=== PATIENT | female | born 1940 | race Caucasian/White ===

== ENCOUNTER 2019-03-21 09:14 | Day surgery (SDC) | payer OTHER ==
[2019-03-20 16:47] VITALS: BMI 34.0
[2019-03-21 11:50] VITALS: TEMP 97.8
[2019-03-21 12:36] VITALS: BP 130/52; PULSE 55
== END 2019-03-21 12:36 | disposition home or self-care (01) ==
LOC: JASU-ENDO 09:14
PROVIDERS: ATTEND Internal Medicine Gastroenterology
PROC: 0DJD8ZZ Inspection of Lower Intestinal Tract, Via Natural or Artificial Opening Endoscopic (ICD-10-PCS; principal; 2019-03-21 10:15)
DX: Z12.11 Encounter for screening for malignant neoplasm of colon (principal); K57.30 Diverticulosis of large intestine without perforation or abscess without bleeding

== ENCOUNTER 2021-05-13 04:08 | Day surgery (SDC) | payer OTHER, MEDICARE ==
[2021-05-10 14:48] VITALS: BMI 32.3
[2021-05-13] MEDS ORDERED: LIDOCAINE HCL/PF 1% SDV 5ML VIAL ONE (07:10)
[2021-05-13] MEDS ORDERED: DEXAMETHASONE SOD PHOSPHATE 10 MG/1 ML VIAL ONE (07:10)
[2021-05-13] MEDS ORDERED: DEXAMETHASONE SOD PHOSPHATE 10 MG/1 ML VIAL IM ONE (10:19)
[2021-05-13] MEDS ORDERED: LIDOCAINE HCL 1% PRESERVATIVE FREE - 30ML VIAL IJ ONE (10:19)
[2021-05-13] MEDS ORDERED: IOHEXOL 180 MG/1 ML ML IJ ONE (10:19)
[2021-05-13 11:33] VITALS: BP 136/68; PULSE 62; TEMP 98.1
== END 2021-05-13 11:05 | disposition home or self-care (01) ==
LOC: JASU-SURG 04:08
PROVIDERS: ATTEND Pain Medicine Pain Medicine
PROC: 3E0R33Z Introduction of Anti-inflammatory into Spinal Canal, Percutaneous Approach (ICD-10-PCS; 2021-05-13)
PROC: B01BYZZ Fluoroscopy of Spinal Cord using Other Contrast (ICD-10-PCS; 2021-05-13)
PROC: 3E0R3BZ Introduction of Anesthetic Agent into Spinal Canal, Percutaneous Approach (ICD-10-PCS; principal; 2021-05-13 09:00)
DX: M54.16 Radiculopathy, lumbar region (principal); M48.061 Spinal stenosis, lumbar region without neurogenic claudication; I10 Essential (primary) hypertension
CPT/HCPCS: 76000-TC-FY; J1100

== ENCOUNTER 2021-06-24 04:18 | Day surgery (SDC) | payer OTHER, MEDICARE ==
[2021-06-23 10:54] VITALS: BMI 32.1
[2021-06-24] MEDS ORDERED: DEXAMETHASONE SOD PHOSPHATE 10 MG/1 ML VIAL ONE (07:11)
[2021-06-24] MEDS ORDERED: BUPIVACAINE HCL/PF 0.75% 10 ML VIAL ONE (07:11)
[2021-06-24] MEDS ORDERED: LIDOCAINE HCL/PF 1% SDV 5ML VIAL ONE (07:15)
[2021-06-24 07:40] VITALS: TEMP 98.9
[2021-06-24] MEDS ORDERED: LIDOCAINE HCL 1% PRESERVATIVE FREE - 30ML VIAL IJ ONE (10:06)
[2021-06-24] MEDS ORDERED: DEXAMETHASONE SOD PHOSPHATE 10 MG/1 ML VIAL IVPUSH ONE (10:07)
[2021-06-24] MEDS ORDERED: IOHEXOL 180 MG/1 ML ML IJ ONE (10:07)
[2021-06-24 10:32] VITALS: BP 130/50
[2021-06-24 12:35] VITALS: PULSE 60
== END 2021-06-24 12:38 | disposition home or self-care (01) ==
LOC: JASU-SURG 04:18
PROVIDERS: ATTEND Pain Medicine Pain Medicine
PROC: 3E0R33Z Introduction of Anti-inflammatory into Spinal Canal, Percutaneous Approach (ICD-10-PCS; 2021-06-24)
PROC: 3E0R3BZ Introduction of Anesthetic Agent into Spinal Canal, Percutaneous Approach (ICD-10-PCS; principal; 2021-06-24 09:00)
DX: M54.16 Radiculopathy, lumbar region (principal)
CPT/HCPCS: 76000-TC-FY; J1100

== ENCOUNTER 2021-07-25 10:35 | Emergency (ER) | payer OTHER, MEDICARE ==
[2021-07-25 11:02] VITALS: BP 121/75; PULSE 64; TEMP 98.2; BMI 32.3
[2021-07-25] MEDS ORDERED: SODIUM PHOSPHATE/NA BIPHOS 133 ML ENEMA PR ONE (11:39)
[2021-07-25 14:52] LABS: BASO % 0.7 % (0-2.0); EOS % 2.3 % (0-4.5); HEMATOCRIT 39.9 % (32.4-45.2); HEMOGLOBIN 13.8 GM/dL (10.7-15.3); LYMPH % 15.8 % (8-40); MCH 31.3 pg (25.7-33.7); MCHC 34.7 g/dl (32.0-36.0); MEAN CELL VOLUME 90.3 fl (80-96); MEAN PLT VOLUME 8.2 fl (7.5-11.1); MONO % 7.6 % (3.8-10.2); NEUT % 73.6 % (42.8-82.8); PLATELET COUNT 220 10^3/uL (134-434); RBC 4.41 M/mm3 (3.60-5.2); RDW 13.9 % (11.6-15.6); WHITE BLOOD COUNT 7.8 K/mm3 (4.0-10.0)
[2021-07-25 15:13] LABS: CALCIUM 9.3 mg/dL (8.5-10.1)
[2021-07-25 15:14] LABS: BLOOD UREA NITROGEN 16.7 mg/dL (7-18)
[2021-07-25 15:17] LABS: CREATININE 1.1 mg/dL (0.55-1.3)
[2021-07-25 15:18] LABS: BILIRUBIN,TOTAL 0.8 mg/dL (0.2-1); TOT PROT 6.9 g/dl (6.4-8.2)
[2021-07-25] MEDS ORDERED: ACETAMINOPHEN 1000 MG/100 ML VIAL IVPB ONE (18:06)
[2021-07-25] MEDS ORDERED: ACETAMINOPHEN INJECTION 100 ML IVPB ONE (18:07)
[2021-07-25] MEDS ORDERED: NAPROXEN 250 MG TABLET PO ONE (18:33)
[2021-07-25] MEDS ORDERED: NAPROXEN 500 MG TABLET ONE (18:35)
[2021-07-25] MEDS ORDERED: LACTULOSE 20 GM/30 ML UDC (FOR ORAL USE ONLY) ONE (18:37)
[2021-07-25] MEDS ORDERED: LACTULOSE 20 GM/30 ML UDC (FOR ORAL USE ONLY) PO ONE (18:41)
== END 2021-07-25 18:55 | disposition home or self-care (01) ==
LOC: JERFT 10:35
PROC: 3E0333Z Introduction of Anti-inflammatory into Peripheral Vein, Percutaneous Approach (ICD-10-PCS; principal; 2021-07-25)
DX: K59.00 Constipation, unspecified (principal)
CPT/HCPCS: 36415; 74018-TC-FY; 74177-TC; 80053; 83690; 85025; 96374; 99285-25; C9803; J0131; Q9967; U0003; U0005

== ENCOUNTER 2021-11-29 04:48 | Day surgery (SDC) | payer OTHER, MEDICARE ==
[2021-11-25 16:37] VITALS: BMI 32.3
[2021-11-29] MEDS ORDERED: BUPIVACAINE HCL/PF 0.5% (5MG/ML) 10 ML VIAL ONE (07:20)
[2021-11-29] MEDS ORDERED: BUPIVACAINE HCL/PF 0.75% 10 ML VIAL ONE (07:21)
[2021-11-29] MEDS ORDERED: LIDOCAINE HCL/PF 1% SDV 5ML VIAL ONE ×2 (07:21→11:39)
[2021-11-29] MEDS ORDERED: DEXAMETHASONE SOD PHOSPHATE 10 MG/1 ML VIAL ONE (07:21)
[2021-11-29] MEDS ORDERED: LIDOCAINE HCL 2% (20ML MULTI-DOSE VIAL) ONE (11:39)
[2021-11-29] MEDS ORDERED: LIDOCAINE HCL/PF 2% SDV 5ML VIAL ONE ×2 (11:42→11:47)
[2021-11-29] MEDS ORDERED: DEXAMETHASONE SOD PHOSPHATE 10 MG/1 ML VIAL IM ONE ×2 (11:43→12:05)
[2021-11-29] MEDS ORDERED: LIDOCAINE HCL/PF 2% SDV 5ML VIAL INF ONE ×2 (11:43→12:05)
[2021-11-29] MEDS ORDERED: LIDOCAINE 1% P/F 10 MG/ML VIAL INF ONE ×2 (11:43→12:04)
[2021-11-29] MEDS ORDERED: ceFAZolin SODIUM 1 GM VIAL IVPB ONE (12:00)
[2021-11-29] MEDS ORDERED: MIDAZOLAM HCL 2 MG/2 ML SINGLE DOSE VIAL ONE ×2 (12:01)
[2021-11-29] MEDS ORDERED: PROPOFOL 20 ML ONE ×2 (12:11)
[2021-11-29] MEDS ORDERED: ceFAZolin SODIUM 1 GM VIAL ONE (12:30)
[2021-11-29] MEDS ORDERED: KETOROLAC TROMETHAMINE 30 MG/1 ML VIAL ONE (13:24)
[2021-11-29] MEDS ORDERED: ACETAMINOPHEN INJECTION 100 ML IVPB ONE (13:24)
[2021-11-29 16:03] VITALS: BP 142/50; PULSE 64; TEMP 97.8
== END 2021-11-29 15:45 | disposition home or self-care (01) ==
LOC: JASU-SURG 04:48
PROVIDERS: ATTEND Pain Medicine Pain Medicine
PROC: BR19YZZ Fluoroscopy of Lumbar Spine using Other Contrast (ICD-10-PCS; 2021-11-29)
PROC: 01NB3ZZ Release Lumbar Nerve, Percutaneous Approach (ICD-10-PCS; principal; 2021-11-29 11:00)
DX: M48.062 Spinal stenosis, lumbar region with neurogenic claudication (principal)
CPT/HCPCS: 0275T; C1889; 76000-TC-FY; 88304-TC; 94760; J1100

== ENCOUNTER 2021-12-17 16:53 | Emergency (ER) | payer OTHER, MEDICARE ==
[2021-12-17 17:16] VITALS: BP 161/76; PULSE 70; TEMP 98.5; BMI 31.3
== END 2021-12-17 19:26 | disposition left against medical advice (07) ==
LOC: JER 16:53
DX: M54.50 Low back pain, unspecified (principal)
CPT/HCPCS: 99281-25

== ENCOUNTER 2021-12-30 04:26 | Day surgery (SDC) | payer OTHER, MEDICARE ==
[2021-12-21 13:40] VITALS: BMI 32.3
[2021-12-30] MEDS ORDERED: LIDOCAINE HCL 1% PRESERVATIVE FREE - 30ML VIAL IJ ONE (10:12)
[2021-12-30] MEDS ORDERED: BUPIVACAINE HCL/PF 0.75% 10 ML VIAL PNB ONE (10:12)
[2021-12-30] MEDS ORDERED: IOHEXOL 180 MG/1 ML ML IJ ONE (10:12)
[2021-12-30] MEDS ORDERED: ACETAMINOPHEN 500 MG TABLET (FP) PO ONE (10:51)
[2021-12-30 13:10] VITALS: TEMP 98.9
[2021-12-30 13:13] VITALS: BP 158/82; PULSE 75
== END 2021-12-30 12:50 | disposition home or self-care (01) ==
LOC: JASU-SURG 04:26
PROVIDERS: ATTEND Pain Medicine Pain Medicine
PROC: 3E0T33Z Introduction of Anti-inflammatory into Peripheral Nerves and Plexi, Percutaneous Approach (ICD-10-PCS; 2021-12-30)
PROC: 3E0T3BZ Introduction of Anesthetic Agent into Peripheral Nerves and Plexi, Percutaneous Approach (ICD-10-PCS; principal; 2021-12-30 11:00)
DX: M47.816 Spondylosis without myelopathy or radiculopathy, lumbar region (principal)
CPT/HCPCS: 76000-TC-FY

== ENCOUNTER 2022-01-27 04:13 | Day surgery (SDC) | payer OTHER, MEDICARE ==
[2022-01-25 16:17] VITALS: BMI 31.3
[~2022-01-27 04:13] MED LIST: BUPIVACAINE HCL/PF 0.75% 10 ML VIAL NR ONE; LIDOCAINE HCL 1% PRESERVATIVE FREE - 30ML VIAL IJ ONE
[2022-01-27] MEDS ORDERED: LIDOCAINE HCL/PF 1% SDV 5ML VIAL ONE (07:37)
[2022-01-27] MEDS ORDERED: BUPIVACAINE HCL/PF 0.75% 10 ML VIAL ONE (07:37)
[2022-01-27] MEDS ORDERED: LIDOCAINE HCL 1% PRESERVATIVE FREE - 30ML VIAL IJ ONE (10:01)
[2022-01-27] MEDS ORDERED: BUPIVACAINE HCL/PF 0.75% 10 ML VIAL NR ONE (10:04)
[2022-01-27 11:07] VITALS: TEMP 98.8
[2022-01-27 11:09] VITALS: BP 160/70; PULSE 68
== END 2022-01-27 11:35 | disposition home or self-care (01) ==
LOC: JASU-SURG 04:13
PROVIDERS: ATTEND Pain Medicine Pain Medicine
PROC: 3E0T33Z Introduction of Anti-inflammatory into Peripheral Nerves and Plexi, Percutaneous Approach (ICD-10-PCS; 2022-01-27)
PROC: 3E0T3BZ Introduction of Anesthetic Agent into Peripheral Nerves and Plexi, Percutaneous Approach (ICD-10-PCS; principal; 2022-01-27 11:00)
DX: M47.816 Spondylosis without myelopathy or radiculopathy, lumbar region (principal)
CPT/HCPCS: 76000-TC-FY

== ENCOUNTER 2022-02-21 04:36 | Day surgery (SDC) | payer OTHER, MEDICARE ==
[2022-02-17 16:45] VITALS: BMI 32.3
[2022-02-21] MEDS ORDERED: BUPIVACAINE HCL/PF 0.75% 10 ML VIAL NR ONE ×3 (10:30→10:57)
[2022-02-21] MEDS ORDERED: LIDOCAINE HCL/PF 2% SDV 5ML VIAL INF ONE ×2 (10:31→10:45)
[2022-02-21] MEDS ORDERED: LIDOCAINE HCL 1% PRESERVATIVE FREE - 30ML VIAL IJ ONE (10:31)
[2022-02-21] MEDS ORDERED: ACETAMINOPHEN 325 MG TABLET (FP) PO ONE (11:10)
[2022-02-21 11:49] VITALS: BP 152/51; PULSE 56; TEMP 97.3
[2022-02-21] MEDS ORDERED: ACETAMINOPHEN 325 MG TABLET (FP) ONE (13:26)
== END 2022-02-21 14:09 | disposition home or self-care (01) ==
LOC: JASU-SURG 04:36
PROVIDERS: ATTEND Pain Medicine Pain Medicine
PROC: 3E0T3TZ Introduction of Destructive Agent into Peripheral Nerves and Plexi, Percutaneous Approach (ICD-10-PCS; principal; 2022-02-21 10:15)
PROC: BR16YZZ Fluoroscopy of Lumbar Facet Joint(s) using Other Contrast (ICD-10-PCS; 2022-02-21 10:15)
DX: M47.816 Spondylosis without myelopathy or radiculopathy, lumbar region (principal); I10 Essential (primary) hypertension
CPT/HCPCS: 76000-TC-FY

== ENCOUNTER 2022-03-15 13:49 | Emergency (ER) | payer OTHER, MEDICARE ==
[2022-03-15 14:18] VITALS: BP 133/58; PULSE 57; TEMP 98; BMI 32.3
[2022-03-15] MEDS ORDERED: LIDOCAINE 5% TOPICAL PATCH TP ONE (14:25)
[2022-03-15] MEDS ORDERED: LIDOCAINE 5% TOPICAL PATCH ONE (14:40)
[2022-03-15] MEDS ORDERED: ACETAMINOPHEN 325 MG TABLET (FP) PO ONE (15:08)
[2022-03-15] MEDS ORDERED: ACETAMINOPHEN 325 MG TABLET (FP) ONE (15:34)
[2022-03-15] MEDS ORDERED: LIDOCAINE PATCH REMOVAL MC SCH (22:00)
== END 2022-03-15 17:18 | disposition home or self-care (01) ==
LOC: JER 13:49
DX: M79.605 Pain in left leg (principal)
CPT/HCPCS: 99283-25

== ENCOUNTER 2022-03-16 07:36 | Observation (INO) | payer OTHER, MEDICARE ==
[2022-03-16] MEDS ORDERED: IBUPROFEN 400 MG TABLET (FP) PO ONE ×2 (08:34→08:55)
[2022-03-16 10:13] LABS: BASO % 0.6 % (0-2.0); EOS % 2.3 % (0-4.5); HEMOGLOBIN 12.4 GM/dL (10.7-15.3); LYMPH % 18.4 % (8-40); MCH 29.7 pg (25.7-33.7); MCHC 33.5 g/dl (32.0-36.0); MEAN CELL VOLUME 88.8 fl (80-96); MEAN PLT VOLUME 8.1 fl (7.5-11.1); MONO % 8.7 % (3.8-10.2); PLATELET COUNT 225 10^3/uL (134-434); RBC 4.17 M/mm3 (3.60-5.2); RDW 14.3 % (11.6-15.6); WHITE BLOOD COUNT 7.4 K/mm3 (4.0-10.0)
[2022-03-16 10:24] LABS: ALBUMIN 3.6 g/dl (3.4-5.0); CALCIUM 8.9 mg/dL (8.5-10.1)
[2022-03-16 10:28] LABS: CREATININE 1.1 mg/dL (0.55-1.3)
[2022-03-16 10:29] LABS: BILIRUBIN,TOTAL 0.8 mg/dL (0.2-1); TOT PROT 5.8 g/dl (6.4-8.2)
[2022-03-16] MEDS ORDERED: LACTULOSE 20 GM/30 ML UDC (FOR ORAL USE ONLY) PO PRN (12:13)
[2022-03-16] MEDS ORDERED: diazePAM 5 MG TABLET PO PRN (12:13)
[2022-03-16 14:33] VITALS: BMI 27.9
[2022-03-16] MEDS: GABAPENTIN 300 MG CAPSULE PO SCH ×2 (15:17→21:54)
[2022-03-16] MEDS ORDERED: IBUPROFEN 400 MG TABLET (FP) PO PRN (15:19)
[2022-03-16] MEDS: ESCITALOPRAM OXALATE 10 MG TABLET PO SCH (15:40)
[2022-03-16] MEDS: ACETAMINOPHEN 325 MG TABLET (FP) PO PRN ×2 (16:30→21:54)
[2022-03-16] MEDS: HEPARIN NA (PORCINE) 5,000 UNITS/ML 1ML VIAL SQ SCH (21:54)
[2022-03-16] MEDS ORDERED: ATORVASTATIN CA 10 MG TABLET (FP) PO SCH (22:00)
[2022-03-16] MEDS ORDERED: BETAHISTINE HCL PO SCH (22:00)
[2022-03-17] MEDS ORDERED: LIDOCAINE 5% TOPICAL PATCH TP ONE (01:38)
[2022-03-17] MEDS: GABAPENTIN 300 MG CAPSULE PO SCH ×2 (06:21→14:20)
[2022-03-17] MEDS ORDERED: CHOLECALCIFEROL (VIT D3) 1,000 UNIT (25 MCG) TABLET PO SCH (10:00)
[2022-03-17] MEDS ORDERED: ASCORBIC ACID 500 MG TABLET (FP) PO SCH (10:00)
[2022-03-17] MEDS ORDERED: [UNRECOGNIZED DRUG - OTHER] PO SCH (10:00)
[2022-03-17] MEDS ORDERED: ASPIRIN COATED 81 MG TABLET.EC PO SCH (10:00)
[2022-03-17] MEDS ORDERED: CYANOCOBALAMIN 1,000 MCG TABLET (FP) PO SCH (10:00)
[2022-03-17] MEDS: HEPARIN NA (PORCINE) 5,000 UNITS/ML 1ML VIAL SQ SCH (10:15)
[2022-03-17] MEDS: ESCITALOPRAM OXALATE 10 MG TABLET PO SCH (10:15)
[2022-03-17] MEDS ORDERED: amLODIPine BESYLATE 5 MG TABLET (FP) PO SCH (11:15)
[2022-03-17 14:39] VITALS: RESP 20
[2022-03-17 14:41] VITALS: BP 133/61; PULSE 62; TEMP 98.1
[2022-03-17] MEDS ORDERED: LIDOCAINE PATCH REMOVAL MC SCH (22:00)
== END 2022-03-17 19:35 | disposition home or self-care (01) ==
LOC: JER 07:36 → JERBED 10:19 → J6S 13:33
PROVIDERS: ADMIT Internal Medicine; ATTEND Internal Medicine
PROC: 3E023GC Introduction of Other Therapeutic Substance into Muscle, Percutaneous Approach (ICD-10-PCS; principal; 2022-03-16)
DX: M48.00 Spinal stenosis, site unspecified (principal); F32.A Depression, unspecified; K59.00 Constipation, unspecified; M54.9 Dorsalgia, unspecified; K29.70 Gastritis, unspecified, without bleeding; I10 Essential (primary) hypertension; E78.5 Hyperlipidemia, unspecified; Z87.440 Personal history of urinary (tract) infections; Z88.0 Allergy status to penicillin
CPT/HCPCS: 36415; 72100-TC-FY; 80053; 85025; 93005; 93010; 96372; 97116-GP; 97162-GP; 99285-25; C9803-CS; G0378; J1644; U0003; U0005

== ENCOUNTER 2022-03-21 04:41 | Day surgery (SDC) | payer OTHER, MEDICARE ==
[2022-03-21] MEDS ORDERED: BUPIVACAINE HCL/PF 0.75% 10 ML VIAL ONE (07:20)
[2022-03-21] MEDS ORDERED: LIDOCAINE HCL/PF 1% SDV 5ML VIAL ONE (07:20)
[2022-03-21] MEDS ORDERED: DEXAMETHASONE SOD PHOSPHATE 10 MG/1 ML VIAL ONE (07:20)
[2022-03-21] MEDS ORDERED: LIDOCAINE HCL/PF 2% SDV 5ML VIAL ONE (07:30)
[2022-03-21] MEDS ORDERED: LIDOCAINE HCL/PF 2% SDV 5ML VIAL SQ ONE (09:15)
[2022-03-21] MEDS ORDERED: DEXAMETHASONE SOD PHOSPHATE 10 MG/1 ML VIAL IVPUSH ONE (09:15)
[2022-03-21] MEDS ORDERED: BUPIVACAINE HCL/PF 0.75% 10 ML VIAL NR ONE (09:15)
[2022-03-21] MEDS ORDERED: LIDOCAINE HCL 1% PRESERVATIVE FREE - 30ML VIAL IJ ONE (09:15)
[2022-03-21] MEDS ORDERED: ACETAMINOPHEN 325 MG TABLET (FP) ONE (10:35)
[2022-03-21 11:25] VITALS: RESP 20; TEMP 98.8
[2022-03-21 15:00] VITALS: BP 125/70; PULSE 62
== END 2022-03-21 14:45 | disposition home or self-care (01) ==
LOC: JASU-SURG 04:41
PROVIDERS: ATTEND Pain Medicine Pain Medicine
PROC: 3E0T3TZ Introduction of Destructive Agent into Peripheral Nerves and Plexi, Percutaneous Approach (ICD-10-PCS; principal; 2022-03-21 08:45)
DX: M47.816 Spondylosis without myelopathy or radiculopathy, lumbar region (principal)
CPT/HCPCS: 76000-TC-FY; J1100

== ENCOUNTER 2022-03-29 06:56 | Emergency (ER) | payer OTHER, MEDICARE ==
[2022-03-29] MEDS ORDERED: KETOROLAC TROMETHAMINE 30 MG/1 ML VIAL IM ONE (07:49)
[2022-03-29] MEDS ORDERED: ACETAMINOPHEN 325 MG TABLET (FP) PO ONE (07:49)
[2022-03-29] MEDS ORDERED: KETOROLAC TROMETHAMINE 30 MG/1 ML VIAL ONE (07:53)
[2022-03-29] MEDS ORDERED: ACETAMINOPHEN 500 MG TABLET (FP) ONE (07:55)
[2022-03-29 08:44] VITALS: RESP 16; TEMP 97.5; BMI 31.4
[2022-03-29] MEDS ORDERED: GABAPENTIN 300 MG CAPSULE PO ONE (11:18)
[2022-03-29] MEDS ORDERED: GABAPENTIN 300 MG CAPSULE ONE (11:19)
[2022-03-29 11:23] VITALS: PULSE 68
[2022-03-29 11:26] VITALS: BP 149/64
== END 2022-03-29 11:56 | disposition home or self-care (01) ==
LOC: JER 06:56
PROC: 3E023GC Introduction of Other Therapeutic Substance into Muscle, Percutaneous Approach (ICD-10-PCS; principal; 2022-03-29)
DX: M48.00 Spinal stenosis, site unspecified (principal); M79.605 Pain in left leg
CPT/HCPCS: 93971-TC; 99284-25

== ENCOUNTER 2022-04-01 04:12 | Emergency (ER) | payer OTHER, MEDICARE ==
[2022-04-01 04:27] VITALS: BMI 31.4
[2022-04-01 04:32] VITALS: TEMP 97.8
[2022-04-01] MEDS ORDERED: LACTULOSE 20 GM/30 ML UDC (FOR ORAL USE ONLY) PO ONE (04:56)
[2022-04-01] MEDS ORDERED: LACTULOSE 20 GM/30 ML UDC (FOR ORAL USE ONLY) ONE (05:02)
[2022-04-01 07:57] VITALS: BP 155/71; PULSE 70; RESP 16
== END 2022-04-01 07:58 | disposition home or self-care (01) ==
LOC: JER 04:12
DX: K62.89 Other specified diseases of anus and rectum (principal); K59.00 Constipation, unspecified
CPT/HCPCS: 99283-25

== ENCOUNTER 2022-04-03 08:36 | Emergency (ER) | payer OTHER, MEDICARE ==
[2022-04-03 08:56] VITALS: BP 135/50; PULSE 60; RESP 18; TEMP 97.4; BMI 30.7
[2022-04-03] MEDS ORDERED: METHOCARBAMOL 500 MG TABLET PO ONE (09:20)
[2022-04-03] MEDS ORDERED: LIDOCAINE 5% TOPICAL PATCH TP ONE (09:20)
[2022-04-03] MEDS ORDERED: ACETAMINOPHEN 500 MG TABLET (FP) PO ONE (09:20)
[2022-04-03] MEDS ORDERED: METHOCARBAMOL 500 MG TABLET ONE (09:46)
[2022-04-03] MEDS ORDERED: ACETAMINOPHEN 325 MG TABLET (FP) ONE (09:47)
[2022-04-03] MEDS ORDERED: LIDOCAINE 5% TOPICAL PATCH ONE (09:47)
[2022-04-03] MEDS ORDERED: LIDOCAINE PATCH REMOVAL MC SCH (22:00)
== END 2022-04-03 14:29 | disposition home or self-care (01) ==
LOC: JER 08:36
DX: M54.89 Other dorsalgia (principal)
CPT/HCPCS: 72100-TC-FY; 93005; 93010; 99284-25

== ENCOUNTER 2022-04-11 07:16 | Inpatient (IN) | payer OTHER, MEDICARE ==
[2022-04-11 07:53] LABS: BASO % 0.9 % (0-2.0); EOS % 2.5 % (0-4.5); HEMATOCRIT 34.9 % (32.4-45.2); HEMOGLOBIN 12.2 GM/dL (10.7-15.3); MCH 30.9 pg (25.7-33.7); MCHC 34.8 g/dl (32.0-36.0); MEAN CELL VOLUME 88.7 fl (80-96); MEAN PLT VOLUME 7.8 fl (7.5-11.1); MONO % 7.9 % (3.8-10.2); NEUT % 74.7 % (42.8-82.8); PLATELET COUNT 221 10^3/uL (134-434); RBC 3.94 M/mm3 (3.60-5.2); RDW 14.3 % (11.6-15.6); WHITE BLOOD COUNT 7.7 K/mm3 (4.0-10.0)
[2022-04-11 08:00] VITALS: BMI 28.2
[2022-04-11 08:20] LABS: PROTHROMBIN TIME (PATIENT) 11.5 SEC (9.7-13.0)
[2022-04-11 08:23] LABS: ACTIVATED PTT 29.2 SECONDS (25.2-36.5); ALBUMIN 3.9 g/dl (3.4-5.0); BLOOD UREA NITROGEN 15.6 mg/dL (7-18); MAGNESIUM 1.7 mg/dL (1.8-2.4)
[2022-04-11 08:26] LABS: CREATININE 1.2 mg/dL (0.55-1.3)
[2022-04-11 08:28] LABS: TOT PROT 6.3 g/dl (6.4-8.2)
[2022-04-11 08:30] LABS: BILIRUBIN,TOTAL 0.7 mg/dL (0.2-1)
[2022-04-11 11:41] LABS: EPI CELLS 7 /uL (0-25.1); HYALINE CASTS 0 /uL (0-3.1); URINE APPEARANCE CLEAR; URINE BACTERIA 1685 /uL (0-1359); URINE BILIRUBIN NEGATIVE (NEGATIVE); URINE COLOR YELLOW; URINE GLUCOSE (UA) NEGATIVE (NEGATIVE); URINE KETONE NEGATIVE (NEGATIVE); URINE LEUK ESTERASE 3+ (NEGATIVE); URINE NITRITE NEGATIVE (NEGATIVE); URINE PROTEIN NEGATIVE (NEGATIVE); URINE UROBILINOGEN 0.2 mg/dL (0.2-1.0); URINE WBC 234 /uL (0-25.8)
[2022-04-11 12:10] LABS: URINE RBC 60.4 /uL (0-23.9)
[2022-04-11] MEDS ORDERED: ACETAMINOPHEN 325 MG TABLET (FP) PO ONE (12:15)
[2022-04-11] MEDS ORDERED: ACETAMINOPHEN 325 MG TABLET (FP) ONE (12:32)
[2022-04-11] MEDS ORDERED: CEFTRIAXONE 1 GM/50 ML BAG ONE (12:32)
[2022-04-11] MEDS ORDERED: MAGNESIUM OXIDE 400 MG TABLET (FP) PO ONE (16:00)
[2022-04-11] MEDS ORDERED: MAGNESIUM OXIDE 400 MG TABLET (FP) ONE (16:21)
[2022-04-11] MEDS: IBUPROFEN 400 MG TABLET (FP) PO PRN (16:36)
[2022-04-11] MEDS: MECLIZINE HCL 12.5 MG TABLET PO SCH ×2 (17:42→21:59)
[2022-04-11] MEDS ORDERED: MECLIZINE HCL 12.5 MG TABLET ONE ×2 (17:43→21:57)
[2022-04-11] MEDS ORDERED: POLYETHYLENE GLYCOL (HEALTHYLAX) 3350 17 GM PACKET ONE (21:17)
[2022-04-11] MEDS ORDERED: SENNOSIDES 8.6MG TABLET (FP) PO ONE (21:17)
[2022-04-11] MEDS ORDERED: ATORVASTATIN CA 10 MG TABLET (FP) ONE (21:18)
[2022-04-11] MEDS ORDERED: DOCUSATE SODIUM 100 MG CAPSULE (FP) PO ONE (21:18)
[2022-04-11] MEDS: SENNOSIDES 8.6MG TABLET (FP) PO SCH (21:26)
[2022-04-11] MEDS: POLYETHYLENE GLYCOL (HEALTHYLAX) 3350 17 GM PACKET PO SCH (21:26)
[2022-04-11] MEDS: ATORVASTATIN CA 10 MG TABLET (FP) PO SCH (21:26)
[2022-04-11] MEDS: DOCUSATE SODIUM 100 MG CAPSULE (FP) PO SCH (21:27)
[2022-04-12] MEDS: IBUPROFEN 400 MG TABLET (FP) PO PRN ×2 (02:49→18:50)
[2022-04-12] MEDS: MECLIZINE HCL 12.5 MG TABLET PO SCH ×3 (06:21→21:05)
[2022-04-12] MEDS: DOCUSATE SODIUM 100 MG CAPSULE (FP) PO SCH ×3 (06:21→21:05)
[2022-04-12 06:59] LABS: BASO % 0.6 % (0-2.0); EOS % 1.6 % (0-4.5); HEMATOCRIT 35.5 % (32.4-45.2); HEMOGLOBIN 12.2 GM/dL (10.7-15.3); LYMPH % 16.6 % (8-40); MCH 30.6 pg (25.7-33.7); MCHC 34.3 g/dl (32.0-36.0); MEAN CELL VOLUME 89.3 fl (80-96); MEAN PLT VOLUME 8.3 fl (7.5-11.1); MONO % 8.9 % (3.8-10.2); NEUT % 72.3 % (42.8-82.8); PLATELET COUNT 227 10^3/uL (134-434); RBC 3.98 M/mm3 (3.60-5.2); RDW 14.3 % (11.6-15.6); WHITE BLOOD COUNT 6.7 K/mm3 (4.0-10.0)
[2022-04-12 07:29] LABS: ALBUMIN 3.5 g/dl (3.4-5.0); MAGNESIUM 1.8 mg/dL (1.8-2.4)
[2022-04-12 07:31] LABS: PHOSPHOROUS 3.1 mg/dL (2.5-4.9)
[2022-04-12 07:33] LABS: BILIRUBIN,TOTAL 0.9 mg/dL (0.2-1); TOT PROT 5.8 g/dl (6.4-8.2)
[2022-04-12] MEDS: PANTOPRAZOLE 20 MG TABLET PO SCH (09:59)
[2022-04-12] MEDS: ESCITALOPRAM OXALATE 10 MG TABLET PO SCH (09:59)
[2022-04-12] MEDS: ENOXAPARIN NA (PORCINE) 40 MG/0.4 ML DISP.SYRIN SQ SCH (09:59)
[2022-04-12] MEDS ORDERED: PATIENT'S OWN MEDICATION (NON-FORMULARY) (Omeprazole 20 MG Capsule.Dr) PO SCH (10:00)
[2022-04-12] MEDS: POLYETHYLENE GLYCOL (HEALTHYLAX) 3350 17 GM PACKET PO SCH ×2 (10:01→21:05)
[2022-04-12] MEDS: CEFTRIAXONE 1 GM in DEXTROSE 5%-WATER - 50 ML IVPB SCH (11:17)
[2022-04-12] MEDS ORDERED: GABAPENTIN 100 MG CAPSULE PO SCH (11:45)
[2022-04-12] MEDS: CYANOCOBALAMIN 1,000 MCG TABLET (FP) PO SCH (12:24)
[2022-04-12] MEDS: GABAPENTIN 300 MG CAPSULE PO SCH ×3 (12:42→21:05)
[2022-04-12] MEDS: ATORVASTATIN CA 10 MG TABLET (FP) PO SCH (21:05)
[2022-04-12] MEDS: SENNOSIDES 8.6MG TABLET (FP) PO SCH (21:05)
[2022-04-13] MEDS: MECLIZINE HCL 12.5 MG TABLET PO SCH ×3 (06:15→21:24)
[2022-04-13] MEDS: DOCUSATE SODIUM 100 MG CAPSULE (FP) PO SCH ×3 (06:15→21:24)
[2022-04-13] MEDS: GABAPENTIN 300 MG CAPSULE PO SCH ×3 (06:15→21:28)
[2022-04-13] MEDS: CYANOCOBALAMIN 1,000 MCG TABLET (FP) PO SCH (10:02)
[2022-04-13] MEDS: PANTOPRAZOLE 20 MG TABLET PO SCH (10:02)
[2022-04-13] MEDS: POLYETHYLENE GLYCOL (HEALTHYLAX) 3350 17 GM PACKET PO SCH ×2 (10:02→21:29)
[2022-04-13] MEDS: ENOXAPARIN NA (PORCINE) 40 MG/0.4 ML DISP.SYRIN SQ SCH (10:03)
[2022-04-13] MEDS: CEFTRIAXONE 1 GM in DEXTROSE 5%-WATER - 50 ML IVPB SCH (10:03)
[2022-04-13] MEDS: ESCITALOPRAM OXALATE 10 MG TABLET PO SCH (10:03)
[2022-04-13] MEDS: IBUPROFEN 400 MG TABLET (FP) PO PRN ×2 (15:31→22:53)
[2022-04-13] MEDS ORDERED: clonazePAM 0.25 MG ODT TABLETS SL PRN (15:56)
[2022-04-13] MEDS: LIPASE/PROTEASE/AMYLASE 36,000 UNIT CAPSULE PO SCH (17:50)
[2022-04-13] MEDS: SENNOSIDES 8.6MG TABLET (FP) PO SCH (21:24)
[2022-04-13] MEDS: ATORVASTATIN CA 10 MG TABLET (FP) PO SCH (21:24)
[2022-04-14 05:58] VITALS: RESP 18
[2022-04-14] MEDS: GABAPENTIN 300 MG CAPSULE PO SCH ×2 (05:58→13:24)
[2022-04-14] MEDS: MECLIZINE HCL 12.5 MG TABLET PO SCH ×2 (05:58→13:24)
[2022-04-14] MEDS: DOCUSATE SODIUM 100 MG CAPSULE (FP) PO SCH ×2 (05:59→13:24)
[2022-04-14] MEDS: LIPASE/PROTEASE/AMYLASE 36,000 UNIT CAPSULE PO SCH ×2 (09:21→13:24)
[2022-04-14] MEDS: POLYETHYLENE GLYCOL (HEALTHYLAX) 3350 17 GM PACKET PO SCH (09:22)
[2022-04-14] MEDS: ENOXAPARIN NA (PORCINE) 40 MG/0.4 ML DISP.SYRIN SQ SCH (09:23)
[2022-04-14] MEDS: PANTOPRAZOLE 20 MG TABLET PO SCH (09:23)
[2022-04-14] MEDS: CYANOCOBALAMIN 1,000 MCG TABLET (FP) PO SCH (09:23)
[2022-04-14] MEDS: ESCITALOPRAM OXALATE 10 MG TABLET PO SCH (09:24)
[2022-04-14] MEDS: CEFTRIAXONE 1 GM in DEXTROSE 5%-WATER - 50 ML IVPB SCH (09:24)
[2022-04-14 09:52] VITALS: BP 164/90; PULSE 61; TEMP 97.9
[2022-04-14] MEDS: IBUPROFEN 400 MG TABLET (FP) PO PRN (13:24)
== END 2022-04-14 14:57 | disposition home or self-care (01) | DRG 690 ==
LOC: JER 07:16 → JERBED 11:46 → J4W 23:16
PROVIDERS: ADMIT Internal Medicine; ATTEND Internal Medicine
DX: N39.0 Urinary tract infection, site not specified (principal); B95.2 Enterococcus as the cause of diseases classified elsewhere; I10 Essential (primary) hypertension; E78.5 Hyperlipidemia, unspecified; K57.90 Diverticulosis of intestine, part unspecified, without perforation or abscess without bleeding; R55 Syncope and collapse; I65.21 Occlusion and stenosis of right carotid artery; R26.81 Unsteadiness on feet; K21.9 Gastro-esophageal reflux disease without esophagitis; M54.9 Dorsalgia, unspecified; M48.00 Spinal stenosis, site unspecified; K59.00 Constipation, unspecified; W18.30XA Fall on same level, unspecified, initial encounter; Y92.098 Other place in other non-institutional residence as the place of occurrence of the external cause
CPT/HCPCS: 36415; 70450-TC; 72125-TC; 80053; 81003; 83735; 84100; 84443; 84484; 85025; 85610; 85730; 87086; 87186; 93005; 93010; 93306-TC; 93880-TC; 97010-GP; 97110-GP; 97116-GP; 97162-GP; 99285-25; C9803-CS; G0283-GP; U0003; U0005

== ENCOUNTER 2022-04-29 13:53 | Observation (INO) | payer OTHER, MEDICARE ==
[2022-04-29] MEDS ORDERED: MECLIZINE HCL 25 MG TABLET (FP) PO ONE (14:41)
[2022-04-29] MEDS ORDERED: ACETAMINOPHEN 1000 MG/100 ML BAG IVPB ONE (14:45)
[2022-04-29] MEDS ORDERED: ONDANSETRON 4 MG/2 ML VIAL IVPUSH ONE (14:49)
[2022-04-29] MEDS ORDERED: MECLIZINE HCL 25 MG TABLET (FP) ONE (14:51)
[2022-04-29] MEDS ORDERED: ACETAMINOPHEN INJECTION 100 ML IVPB ONE (14:51)
[2022-04-29] MEDS ORDERED: ONDANSETRON 4 MG/2 ML VIAL ONE (14:51)
[2022-04-29] MEDS ORDERED: GABAPENTIN 300 MG CAPSULE PO ONE (15:18)
[2022-04-29 15:31] LABS: BASO % 1.1 % (0-2.0); EOS % 1.5 % (0-4.5); HEMATOCRIT 37.9 % (32.4-45.2); HEMOGLOBIN 12.5 GM/dL (10.7-15.3); LYMPH % 26.6 % (8-40); MCHC 32.9 g/dl (32.0-36.0); MEAN CELL VOLUME 91.2 fl (80-96); MONO % 9.7 % (3.8-10.2); NEUT % 61.1 % (42.8-82.8); PLATELET COUNT 280 10^3/uL (134-434); RBC 4.16 M/mm3 (3.60-5.2); RDW 14.1 % (11.6-15.6); WHITE BLOOD COUNT 6.2 K/mm3 (4.0-10.0)
[2022-04-29] MEDS ORDERED: GABAPENTIN 300 MG CAPSULE ONE ×2 (15:39→21:08)
[2022-04-29 15:54] LABS: ALBUMIN 3.6 g/dl (3.4-5.0); BLOOD UREA NITROGEN 18.4 mg/dL (7-18); CALCIUM 9.3 mg/dL (8.5-10.1)
[2022-04-29 15:57] LABS: CREATININE 1.1 mg/dL (0.55-1.3)
[2022-04-29 15:59] LABS: BILIRUBIN,TOTAL 0.6 mg/dL (0.2-1); TOT PROT 6.2 g/dl (6.4-8.2)
[2022-04-29 16:41] LABS: EPI CELLS >36 /uL (0-25.1); HYALINE CASTS 0 /uL (0-3.1); PH,URINE 7.5 (5.0-8.0); URINE APPEARANCE CLEAR; URINE BACTERIA 183 /uL (0-1359); URINE BILIRUBIN NEGATIVE (NEGATIVE); URINE COLOR YELLOW; URINE GLUCOSE (UA) NEGATIVE (NEGATIVE); URINE KETONE NEGATIVE (NEGATIVE); URINE LEUK ESTERASE 2+ (NEGATIVE); URINE NITRITE NEGATIVE (NEGATIVE); URINE PROTEIN NEGATIVE (NEGATIVE); URINE UROBILINOGEN 0.2 mg/dL (0.2-1.0); URINE WBC 68 /uL (0-25.8)
[2022-04-29 16:46] LABS: URINE RBC 70 /uL (0-23.9)
[2022-04-29] MEDS ORDERED: ATORVASTATIN CA 10 MG TABLET (FP) ONE ×2 (21:07→21:09)
[2022-04-29] MEDS ORDERED: MECLIZINE HCL 12.5 MG TABLET ONE (21:07)
[2022-04-29] MEDS ORDERED: SENNOSIDES 8.6MG TABLET (FP) PO ONE (21:07)
[2022-04-29] MEDS ORDERED: POLYETHYLENE GLYCOL (HEALTHYLAX) 3350 17 GM PACKET ONE (21:07)
[2022-04-29] MEDS ORDERED: DOCUSATE SODIUM 100 MG CAPSULE (FP) PO ONE (21:08)
[2022-04-29] MEDS ORDERED: HEPARIN NA (PORCINE) 5,000 UNITS/ML 1ML VIAL ONE (21:08)
[2022-04-29] MEDS: SENNOSIDES 8.6MG TABLET (FP) PO SCH (21:22)
[2022-04-29] MEDS: HEPARIN NA (PORCINE) 5,000 UNITS/ML 1ML VIAL SQ SCH (21:22)
[2022-04-29] MEDS: MECLIZINE HCL 12.5 MG TABLET PO SCH (21:22)
[2022-04-29] MEDS: DOCUSATE SODIUM 100 MG CAPSULE (FP) PO SCH (21:22)
[2022-04-29] MEDS: ATORVASTATIN CA 10 MG TABLET (FP) PO SCH (21:22)
[2022-04-29] MEDS: POLYETHYLENE GLYCOL (HEALTHYLAX) 3350 17 GM PACKET PO SCH (21:22)
[2022-04-29] MEDS: GABAPENTIN 300 MG CAPSULE PO SCH (21:22)
[2022-04-29] MEDS ORDERED: PATIENT'S OWN MEDICATION (NON-FORMULARY) (Lipase/Protease/Amylase [Zenpep Dr 40,000 Unit C PO SCH (22:00)
[2022-04-29] MEDS: IBUPROFEN 400 MG TABLET (FP) PO PRN (23:10)
[2022-04-30 00:07] VITALS: BMI 30.7
[2022-04-30] MEDS ORDERED: ACETAMINOPHEN 1000 MG/100 ML BAG IVPB ONE (00:41)
[2022-04-30] MEDS: GABAPENTIN 300 MG CAPSULE PO SCH ×3 (06:02→21:14)
[2022-04-30] MEDS: DOCUSATE SODIUM 100 MG CAPSULE (FP) PO SCH ×3 (06:02→21:12)
[2022-04-30] MEDS: MECLIZINE HCL 12.5 MG TABLET PO SCH ×3 (06:02→21:11)
[2022-04-30] MEDS: CYANOCOBALAMIN 1,000 MCG TABLET (FP) PO SCH (09:31)
[2022-04-30] MEDS: POLYETHYLENE GLYCOL (HEALTHYLAX) 3350 17 GM PACKET PO SCH ×2 (09:31→21:13)
[2022-04-30] MEDS: PANTOPRAZOLE 20 MG TABLET PO SCH (09:31)
[2022-04-30] MEDS: HEPARIN NA (PORCINE) 5,000 UNITS/ML 1ML VIAL SQ SCH ×2 (09:31→21:13)
[2022-04-30] MEDS ORDERED: ESCITALOPRAM OXALATE 10 MG TABLET PO SCH (10:00)
[2022-04-30] MEDS: IBUPROFEN 400 MG TABLET (FP) PO PRN ×2 (10:37→21:14)
[2022-04-30] MEDS: LIDOCAINE 5% TOPICAL PATCH TP SCH (14:58)
[2022-04-30] MEDS ORDERED: BETAHISTINE HCL PO SCH (15:15)
[2022-04-30] MEDS ORDERED: traMADol HCL 50 MG TABLET PO PRN (15:50)
[2022-04-30] MEDS: ATORVASTATIN CA 10 MG TABLET (FP) PO SCH (21:13)
[2022-04-30] MEDS: SENNOSIDES 8.6MG TABLET (FP) PO SCH (21:14)
[2022-04-30] MEDS: BETAHISTINE HCL PO SCH (21:24)
[2022-05-01] MEDS: LIDOCAINE PATCH REMOVAL MC SCH ×2 (02:42→21:23)
[2022-05-01] MEDS: DOCUSATE SODIUM 100 MG CAPSULE (FP) PO SCH ×3 (06:40→21:04)
[2022-05-01] MEDS: GABAPENTIN 300 MG CAPSULE PO SCH ×3 (06:40→21:04)
[2022-05-01] MEDS: MECLIZINE HCL 12.5 MG TABLET PO SCH ×3 (06:40→21:04)
[2022-05-01] MEDS: LIDOCAINE 5% TOPICAL PATCH TP SCH (10:43)
[2022-05-01] MEDS: IBUPROFEN 400 MG TABLET (FP) PO PRN ×2 (10:44→21:05)
[2022-05-01] MEDS: POLYETHYLENE GLYCOL (HEALTHYLAX) 3350 17 GM PACKET PO SCH ×2 (10:44→21:07)
[2022-05-01] MEDS: HEPARIN NA (PORCINE) 5,000 UNITS/ML 1ML VIAL SQ SCH ×2 (10:45→21:04)
[2022-05-01] MEDS: ESCITALOPRAM OXALATE 20 MG TABLET PO SCH (10:45)
[2022-05-01] MEDS: BETAHISTINE HCL PO SCH ×2 (10:45→21:07)
[2022-05-01] MEDS: CYANOCOBALAMIN 1,000 MCG TABLET (FP) PO SCH (10:45)
[2022-05-01] MEDS: PANTOPRAZOLE 20 MG TABLET PO SCH (10:45)
[2022-05-01] MEDS: ATORVASTATIN CA 10 MG TABLET (FP) PO SCH (21:04)
[2022-05-01] MEDS: SENNOSIDES 8.6MG TABLET (FP) PO SCH (21:04)
[2022-05-02] MEDS: DOCUSATE SODIUM 100 MG CAPSULE (FP) PO SCH ×3 (06:07→21:54)
[2022-05-02] MEDS: GABAPENTIN 300 MG CAPSULE PO SCH ×3 (06:07→21:54)
[2022-05-02] MEDS: MECLIZINE HCL 12.5 MG TABLET PO SCH ×3 (06:07→21:54)
[2022-05-02] MEDS: POLYETHYLENE GLYCOL (HEALTHYLAX) 3350 17 GM PACKET PO SCH ×2 (09:23→21:56)
[2022-05-02] MEDS: HEPARIN NA (PORCINE) 5,000 UNITS/ML 1ML VIAL SQ SCH ×2 (09:24→21:56)
[2022-05-02] MEDS: PANTOPRAZOLE 20 MG TABLET PO SCH (09:25)
[2022-05-02] MEDS: ESCITALOPRAM OXALATE 20 MG TABLET PO SCH (09:25)
[2022-05-02] MEDS: CYANOCOBALAMIN 1,000 MCG TABLET (FP) PO SCH (09:25)
[2022-05-02] MEDS: LIDOCAINE 5% TOPICAL PATCH TP SCH (09:25)
[2022-05-02] MEDS: BETAHISTINE HCL PO SCH ×2 (09:28→21:56)
[2022-05-02] MEDS: IBUPROFEN 400 MG TABLET (FP) PO PRN ×2 (14:04→22:20)
[2022-05-02] MEDS: ATORVASTATIN CA 10 MG TABLET (FP) PO SCH (21:54)
[2022-05-02] MEDS: SENNOSIDES 8.6MG TABLET (FP) PO SCH (21:54)
[2022-05-02] MEDS: LIDOCAINE PATCH REMOVAL MC SCH (21:57)
[2022-05-02] MEDS: ACETAMINOPHEN 325 MG TABLET (FP) PO PRN (22:19)
[2022-05-03] MEDS: IBUPROFEN 400 MG TABLET (FP) PO PRN ×2 (05:47→16:18)
[2022-05-03] MEDS: ACETAMINOPHEN 325 MG TABLET (FP) PO PRN ×2 (05:47→17:40)
[2022-05-03] MEDS: DOCUSATE SODIUM 100 MG CAPSULE (FP) PO SCH ×3 (05:47→21:28)
[2022-05-03] MEDS: MECLIZINE HCL 12.5 MG TABLET PO SCH ×3 (05:47→21:28)
[2022-05-03] MEDS: GABAPENTIN 300 MG CAPSULE PO SCH ×3 (05:47→21:28)
[2022-05-03] MEDS: LIDOCAINE 5% TOPICAL PATCH TP SCH (10:23)
[2022-05-03] MEDS: POLYETHYLENE GLYCOL (HEALTHYLAX) 3350 17 GM PACKET PO SCH ×2 (10:24→21:29)
[2022-05-03] MEDS: CYANOCOBALAMIN 1,000 MCG TABLET (FP) PO SCH (10:25)
[2022-05-03] MEDS: BETAHISTINE HCL PO SCH ×2 (10:25→21:29)
[2022-05-03] MEDS: HEPARIN NA (PORCINE) 5,000 UNITS/ML 1ML VIAL SQ SCH ×2 (10:25→21:29)
[2022-05-03] MEDS: PANTOPRAZOLE 20 MG TABLET PO SCH (10:25)
[2022-05-03] MEDS: ESCITALOPRAM OXALATE 20 MG TABLET PO SCH (10:26)
[2022-05-03] MEDS: SENNOSIDES 8.6MG TABLET (FP) PO SCH (21:27)
[2022-05-03] MEDS: ATORVASTATIN CA 10 MG TABLET (FP) PO SCH (21:28)
[2022-05-03] MEDS: LIDOCAINE PATCH REMOVAL MC SCH (21:29)
[2022-05-04] MEDS: ACETAMINOPHEN 325 MG TABLET (FP) PO PRN ×3 (00:50→21:09)
[2022-05-04] MEDS: IBUPROFEN 400 MG TABLET (FP) PO PRN ×2 (02:11→15:57)
[2022-05-04] MEDS: DOCUSATE SODIUM 100 MG CAPSULE (FP) PO SCH ×3 (06:44→21:11)
[2022-05-04] MEDS: GABAPENTIN 300 MG CAPSULE PO SCH ×3 (06:44→21:11)
[2022-05-04] MEDS: MECLIZINE HCL 12.5 MG TABLET PO SCH ×3 (06:44→21:11)
[2022-05-04] MEDS ORDERED: ESCITALOPRAM OXALATE 10 MG TABLET ONE (09:46)
[2022-05-04] MEDS: PANTOPRAZOLE 20 MG TABLET PO SCH (09:57)
[2022-05-04] MEDS: HEPARIN NA (PORCINE) 5,000 UNITS/ML 1ML VIAL SQ SCH ×2 (09:57→21:11)
[2022-05-04] MEDS: POLYETHYLENE GLYCOL (HEALTHYLAX) 3350 17 GM PACKET PO SCH ×2 (09:57→21:12)
[2022-05-04] MEDS: LIDOCAINE 5% TOPICAL PATCH TP SCH (09:57)
[2022-05-04] MEDS: BETAHISTINE HCL PO SCH ×2 (09:59→21:12)
[2022-05-04] MEDS: ESCITALOPRAM OXALATE 20 MG TABLET PO SCH (10:00)
[2022-05-04] MEDS: CYANOCOBALAMIN 1,000 MCG TABLET (FP) PO SCH (10:01)
[2022-05-04] MEDS: SENNOSIDES 8.6MG TABLET (FP) PO SCH (21:11)
[2022-05-04] MEDS: ATORVASTATIN CA 10 MG TABLET (FP) PO SCH (21:11)
[2022-05-04] MEDS: LIDOCAINE PATCH REMOVAL MC SCH (21:12)
[2022-05-05] MEDS: IBUPROFEN 400 MG TABLET (FP) PO PRN ×2 (00:15→17:30)
[2022-05-05] MEDS: ACETAMINOPHEN 325 MG TABLET (FP) PO PRN ×2 (02:53→13:19)
[2022-05-05] MEDS: MECLIZINE HCL 12.5 MG TABLET PO SCH ×3 (06:46→22:49)
[2022-05-05] MEDS: DOCUSATE SODIUM 100 MG CAPSULE (FP) PO SCH ×3 (06:46→22:40)
[2022-05-05] MEDS: GABAPENTIN 300 MG CAPSULE PO SCH ×3 (06:46→22:41)
[2022-05-05] MEDS: POLYETHYLENE GLYCOL (HEALTHYLAX) 3350 17 GM PACKET PO SCH ×2 (10:01→22:40)
[2022-05-05] MEDS: CYANOCOBALAMIN 1,000 MCG TABLET (FP) PO SCH (10:02)
[2022-05-05] MEDS: PANTOPRAZOLE 20 MG TABLET PO SCH (10:02)
[2022-05-05] MEDS: LIDOCAINE 5% TOPICAL PATCH TP SCH (10:02)
[2022-05-05] MEDS: ESCITALOPRAM OXALATE 20 MG TABLET PO SCH (10:02)
[2022-05-05] MEDS: HEPARIN NA (PORCINE) 5,000 UNITS/ML 1ML VIAL SQ SCH ×2 (10:02→22:40)
[2022-05-05] MEDS: BETAHISTINE HCL PO SCH ×2 (10:03→22:42)
[2022-05-05] MEDS: ATORVASTATIN CA 10 MG TABLET (FP) PO SCH (22:40)
[2022-05-05] MEDS: LIDOCAINE PATCH REMOVAL MC SCH (22:41)
[2022-05-05] MEDS: SENNOSIDES 8.6MG TABLET (FP) PO SCH ×2 (22:56→23:59)
[2022-05-05 23:04] VITALS: RESP 18
[2022-05-06] MEDS: DOCUSATE SODIUM 100 MG CAPSULE (FP) PO SCH (05:37)
[2022-05-06] MEDS: GABAPENTIN 300 MG CAPSULE PO SCH (05:37)
[2022-05-06] MEDS: MECLIZINE HCL 12.5 MG TABLET PO SCH (05:37)
[2022-05-06] MEDS: ACETAMINOPHEN 325 MG TABLET (FP) PO PRN (05:38)
[2022-05-06 07:07] VITALS: BP 145/75; PULSE 76; TEMP 98.3
[2022-05-06] MEDS: HEPARIN NA (PORCINE) 5,000 UNITS/ML 1ML VIAL SQ SCH (12:00)
[2022-05-06] MEDS: LIDOCAINE 5% TOPICAL PATCH TP SCH (12:00)
[2022-05-06] MEDS: ESCITALOPRAM OXALATE 20 MG TABLET PO SCH (12:01)
[2022-05-06] MEDS: POLYETHYLENE GLYCOL (HEALTHYLAX) 3350 17 GM PACKET PO SCH (12:01)
[2022-05-06] MEDS: PANTOPRAZOLE 20 MG TABLET PO SCH (12:01)
[2022-05-06] MEDS: CYANOCOBALAMIN 1,000 MCG TABLET (FP) PO SCH (12:01)
[2022-05-06] MEDS: BETAHISTINE HCL PO SCH (12:13)
== END 2022-05-06 12:00 ==
LOC: JER 13:53 → JERBED 16:19 → J4W 22:50 → J7W 05-05 16:19
PROVIDERS: ADMIT Internal Medicine; ATTEND Internal Medicine
PROC: 3E033GC Introduction of Other Therapeutic Substance into Peripheral Vein, Percutaneous Approach (ICD-10-PCS; principal; 2022-04-29)
PROC: 3E013GC Introduction of Other Therapeutic Substance into Subcutaneous Tissue, Percutaneous Approach (ICD-10-PCS; 2022-04-29)
DX: M54.9 Dorsalgia, unspecified (principal); R53.1 Weakness; I10 Essential (primary) hypertension; E78.5 Hyperlipidemia, unspecified; K21.9 Gastro-esophageal reflux disease without esophagitis; H81.09 Meniere's disease, unspecified ear; M48.061 Spinal stenosis, lumbar region without neurogenic claudication; F32.A Depression, unspecified; I65.21 Occlusion and stenosis of right carotid artery; R55 Syncope and collapse; Z87.440 Personal history of urinary (tract) infections
CPT/HCPCS: 36415; 70450-TC; 71045-TC-FY; 80053; 81003; 84484; 85025; 87086; 87186; 93005; 93010; 96372; 96374; 96375; 96376; 97116-GP; 97162-GP; 99285-25; C9803-CS; G0378; J1644; U0003; U0005

== ENCOUNTER 2022-06-07 08:06 | Emergency (ER) | payer OTHER, MEDICARE ==
[2022-06-07 08:29] VITALS: BMI 29.0
[2022-06-07] MEDS ORDERED: ACETAMINOPHEN 1000 MG/100 ML BAG IVPB ONE (09:11)
[2022-06-07] MEDS ORDERED: ACETAMINOPHEN INJECTION 100 ML IVPB ONE (09:43)
[2022-06-07 10:02] LABS: BASO % 0.7 % (0-2.0); EOS % 0.6 % (0-4.5); HEMOGLOBIN 12.6 GM/dL (10.7-15.3); LYMPH % 14.9 % (8-40); MCH 31.2 pg (25.7-33.7); MCHC 33.9 g/dl (32.0-36.0); MEAN CELL VOLUME 92.1 fl (80-96); MEAN PLT VOLUME 7.8 fl (7.5-11.1); MONO % 8.3 % (3.8-10.2); NEUT % 75.5 % (42.8-82.8); PLATELET COUNT 248 10^3/uL (134-434); RBC 4.02 M/mm3 (3.60-5.2); RDW 13.9 % (11.6-15.6)
[2022-06-07 10:12] LABS: ALBUMIN 3.6 g/dl (3.4-5.0); CALCIUM 9.4 mg/dL (8.5-10.1)
[2022-06-07 10:13] LABS: BLOOD UREA NITROGEN 11.4 mg/dL (7-18)
[2022-06-07 10:16] LABS: CREATININE 0.9 mg/dL (0.55-1.3)
[2022-06-07 10:18] LABS: BILIRUBIN,TOTAL 0.9 mg/dL (0.2-1); TOT PROT 6.2 g/dl (6.4-8.2)
[2022-06-07] MEDS ORDERED: KETOROLAC TROMETHAMINE 30 MG/1 ML VIAL IVPUSH ONE (12:08)
[2022-06-07] MEDS ORDERED: KETOROLAC TROMETHAMINE 30 MG/1 ML VIAL ONE (12:09)
[2022-06-07] MEDS ORDERED: SODIUM PHOSPHATE/NA BIPHOS 133 ML ENEMA PR ONE (12:21)
[2022-06-07] MEDS ORDERED: morphine CARPU-JECT 4 MG/1 ML DISP.SYRIN IVPUSH ONE (12:49)
[2022-06-07 18:43] VITALS: BP 112/69; PULSE 67; RESP 14; TEMP 97.7
== END 2022-06-07 18:45 | disposition home or self-care (01) ==
LOC: JER 08:06
PROC: 3E033NZ Introduction of Analgesics, Hypnotics, Sedatives into Peripheral Vein, Percutaneous Approach (ICD-10-PCS; principal; 2022-06-07)
PROC: 3E033GC Introduction of Other Therapeutic Substance into Peripheral Vein, Percutaneous Approach (ICD-10-PCS; 2022-06-07)
PROC: 3E033GC Introduction of Other Therapeutic Substance into Peripheral Vein, Percutaneous Approach (ICD-10-PCS; 2022-06-07)
DX: K59.00 Constipation, unspecified (principal); M54.9 Dorsalgia, unspecified
CPT/HCPCS: 36415; 74177-TC; 80053; 83605; 83690; 85025; 99285-25; Q9967

== ENCOUNTER 2022-06-18 08:35 | Inpatient (IN) | payer OTHER, MEDICARE ==
[2022-06-18] MEDS ORDERED: LIDOCAINE 5% TOPICAL PATCH TP ONE (09:37)
[2022-06-18] MEDS ORDERED: LIDOCAINE 5% TOPICAL PATCH ONE (09:38)
[2022-06-18] MEDS ORDERED: KETOROLAC TROMETHAMINE 15 MG/ML VIAL IM ONE (10:51)
[2022-06-18] MEDS ORDERED: KETOROLAC TROMETHAMINE 15 MG/ML VIAL ONE (13:02)
[2022-06-18] MEDS ORDERED: CYCLOBENZAPRINE HCL 5 MG TABLET ONE (13:02)
[2022-06-18 13:07] LABS: BLOOD UREA NITROGEN 12.1 mg/dL (7-18)
[2022-06-18 13:08] LABS: ALBUMIN 3.6 g/dl (3.4-5.0); CALCIUM 9.5 mg/dL (8.5-10.1)
[2022-06-18] MEDS: CYCLOBENZAPRINE HCL 5 MG TABLET PO SCH (13:08)
[2022-06-18 13:11] LABS: CREATININE 0.9 mg/dL (0.55-1.3)
[2022-06-18 13:14] LABS: BILIRUBIN,TOTAL 0.8 mg/dL (0.2-1); TOT PROT 6.2 g/dl (6.4-8.2)
[2022-06-18 13:20] LABS: BASO % 0.6 % (0-2.0); EOS % 0.5 % (0-4.5); HEMATOCRIT 39.7 % (32.4-45.2); HEMOGLOBIN 13.2 GM/dL (10.7-15.3); LYMPH % 19.3 % (8-40); MCH 30.6 pg (25.7-33.7); MCHC 33.3 g/dl (32.0-36.0); MEAN CELL VOLUME 91.8 fl (80-96); MEAN PLT VOLUME 7.9 fl (7.5-11.1); MONO % 8.8 % (3.8-10.2); NEUT % 70.8 % (42.8-82.8); PLATELET COUNT 253 10^3/uL (134-434); RBC 4.33 M/mm3 (3.60-5.2); RDW 13.8 % (11.6-15.6); WHITE BLOOD COUNT 6.9 K/mm3 (4.0-10.0)
[2022-06-18] MEDS ORDERED: morphine CARPU-JECT 4 MG/1 ML DISP.SYRIN IVPUSH ONE (13:22)
[2022-06-18] MEDS ORDERED: morphine SULFATE 4 MG/ML VIAL ONE (13:23)
[2022-06-18] MEDS ORDERED: oxyCODONE HCL 5 MG TABLET PO PRN (14:40)
[2022-06-18] MEDS: LIPASE/PROTEASE/AMYLASE 36,000 UNIT CAPSULE PO SCH ×2 (19:53→20:00)
[2022-06-18] MEDS: oxyCODONE HCL 5 MG TABLET PO PRN (21:18)
[2022-06-18] MEDS ORDERED: LIDOCAINE PATCH REMOVAL MC ONE (22:00)
[2022-06-18] MEDS: DOCUSATE SODIUM 100 MG CAPSULE (FP) PO SCH ×2 (23:14→23:15)
[2022-06-18] MEDS: MECLIZINE HCL 12.5 MG TABLET PO SCH (23:14)
[2022-06-18] MEDS: POLYETHYLENE GLYCOL (HEALTHYLAX) 3350 17 GM PACKET PO SCH (23:15)
[2022-06-18] MEDS: SENNOSIDES 8.6MG TABLET (FP) PO SCH (23:15)
[2022-06-18] MEDS: GABAPENTIN 300 MG CAPSULE PO SCH (23:15)
[2022-06-18] MEDS: LIDOCAINE PATCH REMOVAL MC SCH (23:26)
[2022-06-19] MEDS: ACETAMINOPHEN 325 MG TABLET (FP) PO PRN ×3 (00:27→17:43)
[2022-06-19] MEDS: oxyCODONE HCL 5 MG TABLET PO PRN ×2 (03:58→14:22)
[2022-06-19] MEDS: MECLIZINE HCL 12.5 MG TABLET PO SCH ×3 (06:55→22:14)
[2022-06-19] MEDS: DOCUSATE SODIUM 100 MG CAPSULE (FP) PO SCH ×4 (06:56→21:18)
[2022-06-19] MEDS: GABAPENTIN 300 MG CAPSULE PO SCH ×3 (06:56→21:19)
[2022-06-19] MEDS: LIPASE/PROTEASE/AMYLASE 36,000 UNIT CAPSULE PO SCH ×4 (09:50→17:43)
[2022-06-19] MEDS: ENOXAPARIN NA (PORCINE) 40 MG/0.4 ML DISP.SYRIN SQ SCH (09:50)
[2022-06-19] MEDS: CYCLOBENZAPRINE HCL 5 MG TABLET PO SCH (09:51)
[2022-06-19] MEDS: POLYETHYLENE GLYCOL (HEALTHYLAX) 3350 17 GM PACKET PO SCH ×2 (09:51→21:18)
[2022-06-19] MEDS: PANTOPRAZOLE 20 MG TABLET PO SCH (09:51)
[2022-06-19] MEDS: CYANOCOBALAMIN 1,000 MCG TABLET (FP) PO SCH (09:52)
[2022-06-19] MEDS: LIDOCAINE 5% TOPICAL PATCH TP SCH (09:52)
[2022-06-19] MEDS: ESCITALOPRAM OXALATE 10 MG TABLET PO SCH (09:52)
[2022-06-19] MEDS ORDERED: BETAHISTINE HCL PO SCH (10:00)
[2022-06-19 10:39] LABS: BASO % 0.6 % (0-2.0); EOS % 0.7 % (0-4.5); HEMATOCRIT 37.4 % (32.4-45.2); HEMOGLOBIN 13.1 GM/dL (10.7-15.3); LYMPH % 20.2 % (8-40); MEAN CELL VOLUME 91.5 fl (80-96); MEAN PLT VOLUME 7.5 fl (7.5-11.1); MONO % 7.9 % (3.8-10.2); NEUT % 70.6 % (42.8-82.8); PLATELET COUNT 237 10^3/uL (134-434); RBC 4.09 M/mm3 (3.60-5.2); RDW 13.2 % (11.6-15.6); WHITE BLOOD COUNT 6.9 K/mm3 (4.0-10.0)
[2022-06-19 10:56] LABS: CALCIUM 9.1 mg/dL (8.5-10.1)
[2022-06-19 10:57] LABS: ALBUMIN 3.4 g/dl (3.4-5.0); BLOOD UREA NITROGEN 12.7 mg/dL (7-18)
[2022-06-19 11:00] LABS: CREATININE 0.9 mg/dL (0.55-1.3)
[2022-06-19 11:01] LABS: BILIRUBIN,TOTAL 0.8 mg/dL (0.2-1)
[2022-06-19 11:02] LABS: TOT PROT 5.8 g/dl (6.4-8.2)
[2022-06-19] MEDS: SENNOSIDES 8.6MG TABLET (FP) PO SCH (21:20)
[2022-06-19] MEDS: LIDOCAINE PATCH REMOVAL MC SCH (22:17)
[2022-06-20] MEDS: DOCUSATE SODIUM 100 MG CAPSULE (FP) PO SCH ×3 (05:17→21:30)
[2022-06-20] MEDS: MECLIZINE HCL 12.5 MG TABLET PO SCH ×4 (05:17→21:30)
[2022-06-20] MEDS: GABAPENTIN 300 MG CAPSULE PO SCH ×2 (05:18→13:30)
[2022-06-20] MEDS: ACETAMINOPHEN 325 MG TABLET (FP) PO PRN ×2 (05:36→15:48)
[2022-06-20] MEDS: LIPASE/PROTEASE/AMYLASE 36,000 UNIT CAPSULE PO SCH ×3 (10:02→11:37)
[2022-06-20] MEDS: ENOXAPARIN NA (PORCINE) 40 MG/0.4 ML DISP.SYRIN SQ SCH (10:03)
[2022-06-20] MEDS: CYCLOBENZAPRINE HCL 5 MG TABLET PO SCH (10:03)
[2022-06-20] MEDS: LIDOCAINE 5% TOPICAL PATCH TP SCH (10:03)
[2022-06-20] MEDS: CYANOCOBALAMIN 1,000 MCG TABLET (FP) PO SCH (10:03)
[2022-06-20] MEDS: ESCITALOPRAM OXALATE 10 MG TABLET PO SCH (10:03)
[2022-06-20] MEDS: POLYETHYLENE GLYCOL (HEALTHYLAX) 3350 17 GM PACKET PO SCH ×2 (10:03→21:31)
[2022-06-20] MEDS: PANTOPRAZOLE 20 MG TABLET PO SCH (10:03)
[2022-06-20] MEDS ORDERED: BISACODYL 10 MG SUPP.RECT PR PRN (12:03)
[2022-06-20] MEDS ORDERED: ESCITALOPRAM OXALATE 10 MG TABLET PO SCH (17:46)
[2022-06-20] MEDS: SENNOSIDES 8.6MG TABLET (FP) PO SCH (21:30)
[2022-06-20] MEDS: LIDOCAINE PATCH REMOVAL MC SCH (21:38)
[2022-06-21] MEDS: MECLIZINE HCL 12.5 MG TABLET PO SCH ×3 (06:41→21:36)
[2022-06-21] MEDS: DOCUSATE SODIUM 100 MG CAPSULE (FP) PO SCH ×3 (06:41→21:36)
[2022-06-21] MEDS ORDERED: INSULIN (LEVEMIR) 100 UNITS/ML UNITS SQ ONE (07:53)
[2022-06-21] MEDS ORDERED: ESCITALOPRAM OXALATE 10 MG TABLET ONE ×2 (10:06→10:13)
[2022-06-21] MEDS: KETOROLAC TROMETHAMINE 30 MG/1 ML VIAL IM PRN ×2 (10:08→17:59)
[2022-06-21] MEDS: GABAPENTIN 100 MG CAPSULE PO SCH (10:09)
[2022-06-21] MEDS: CYCLOBENZAPRINE HCL 5 MG TABLET PO SCH (10:09)
[2022-06-21] MEDS: PANTOPRAZOLE 20 MG TABLET PO SCH (10:09)
[2022-06-21] MEDS: ENOXAPARIN NA (PORCINE) 40 MG/0.4 ML DISP.SYRIN SQ SCH (10:10)
[2022-06-21] MEDS: CYANOCOBALAMIN 1,000 MCG TABLET (FP) PO SCH (10:10)
[2022-06-21] MEDS: POLYETHYLENE GLYCOL (HEALTHYLAX) 3350 17 GM PACKET PO SCH ×2 (10:10→21:36)
[2022-06-21] MEDS: LIDOCAINE 5% TOPICAL PATCH TP SCH (10:11)
[2022-06-21] MEDS: ESCITALOPRAM OXALATE 20 MG TABLET PO SCH (10:14)
[2022-06-21] MEDS: SENNOSIDES 8.6MG TABLET (FP) PO SCH (21:36)
[2022-06-21] MEDS: LIDOCAINE PATCH REMOVAL MC SCH (21:44)
[2022-06-22] MEDS: KETOROLAC TROMETHAMINE 30 MG/1 ML VIAL IM PRN ×2 (00:17→15:51)
[2022-06-22] MEDS: ACETAMINOPHEN 325 MG TABLET (FP) PO PRN ×3 (05:47→23:06)
[2022-06-22] MEDS: MECLIZINE HCL 12.5 MG TABLET PO SCH ×3 (05:47→21:49)
[2022-06-22] MEDS: DOCUSATE SODIUM 100 MG CAPSULE (FP) PO SCH ×3 (05:53→21:49)
[2022-06-22] MEDS ORDERED: LORazepam 2 MG/ML SDV VIAL IM ONE (07:37)
[2022-06-22] MEDS ORDERED: ESCITALOPRAM OXALATE 10 MG TABLET ONE (09:43)
[2022-06-22] MEDS: CYANOCOBALAMIN 1,000 MCG TABLET (FP) PO SCH (09:50)
[2022-06-22] MEDS: POLYETHYLENE GLYCOL (HEALTHYLAX) 3350 17 GM PACKET PO SCH ×2 (09:51→21:50)
[2022-06-22] MEDS: PANTOPRAZOLE 20 MG TABLET PO SCH (09:51)
[2022-06-22] MEDS: GABAPENTIN 100 MG CAPSULE PO SCH (09:51)
[2022-06-22] MEDS: CYCLOBENZAPRINE HCL 5 MG TABLET PO SCH (09:51)
[2022-06-22] MEDS: ESCITALOPRAM OXALATE 20 MG TABLET PO SCH (09:52)
[2022-06-22] MEDS: ENOXAPARIN NA (PORCINE) 40 MG/0.4 ML DISP.SYRIN SQ SCH (09:52)
[2022-06-22] MEDS: LIDOCAINE 5% TOPICAL PATCH TP SCH (10:29)
[2022-06-22] MEDS: SENNOSIDES 8.6MG TABLET (FP) PO SCH (21:50)
[2022-06-22] MEDS: LIDOCAINE PATCH REMOVAL MC SCH (21:55)
[2022-06-22] MEDS: clonazePAM 0.5 MG TABLET PO PRN (23:07)
[2022-06-23] MEDS: DOCUSATE SODIUM 100 MG CAPSULE (FP) PO SCH (05:24)
[2022-06-23] MEDS: MECLIZINE HCL 12.5 MG TABLET PO SCH ×3 (05:24→22:53)
[2022-06-23] MEDS: ACETAMINOPHEN 325 MG TABLET (FP) PO PRN ×2 (05:25→22:54)
[2022-06-23] MEDS ORDERED: ESCITALOPRAM OXALATE 10 MG TABLET ONE (09:13)
[2022-06-23] MEDS: PANTOPRAZOLE 20 MG TABLET PO SCH (09:17)
[2022-06-23] MEDS: CYANOCOBALAMIN 1,000 MCG TABLET (FP) PO SCH (09:17)
[2022-06-23] MEDS: LIDOCAINE 5% TOPICAL PATCH TP SCH (09:17)
[2022-06-23] MEDS: CYCLOBENZAPRINE HCL 5 MG TABLET PO SCH (09:17)
[2022-06-23] MEDS: ESCITALOPRAM OXALATE 20 MG TABLET PO SCH (09:17)
[2022-06-23] MEDS: KETOROLAC TROMETHAMINE 30 MG/1 ML VIAL IM PRN (09:18)
[2022-06-23] MEDS: ENOXAPARIN NA (PORCINE) 40 MG/0.4 ML DISP.SYRIN SQ SCH (09:18)
[2022-06-23] MEDS: POLYETHYLENE GLYCOL (HEALTHYLAX) 3350 17 GM PACKET PO SCH ×3 (10:32→22:55)
[2022-06-23] MEDS ORDERED: POLYETHYLENE GLYCOL (HEALTHYLAX) 3350 17 GM PACKET PO SCH (14:00)
[2022-06-23 20:13] LABS: EPI CELLS 11 /uL (0-25.1); HYALINE CASTS 0 /uL (0-3.1); URINE APPEARANCE CLEAR; URINE BACTERIA 30 /uL (0-1359); URINE BILIRUBIN NEGATIVE (NEGATIVE); URINE COLOR YELLOW; URINE GLUCOSE (UA) NEGATIVE (NEGATIVE); URINE KETONE NEGATIVE (NEGATIVE); URINE LEUK ESTERASE TRACE (NEGATIVE); URINE NITRITE NEGATIVE (NEGATIVE); URINE PROTEIN NEGATIVE (NEGATIVE); URINE RBC 12 /uL (0-23.9); URINE UROBILINOGEN 0.2 mg/dL (0.2-1.0); URINE WBC 5 /uL (0-25.8)
[2022-06-23] MEDS: clonazePAM 0.5 MG TABLET PO PRN (22:53)
[2022-06-23] MEDS: LIDOCAINE PATCH REMOVAL MC SCH (22:55)
[2022-06-23] MEDS: SENNOSIDES 8.6MG TABLET (FP) PO SCH (22:55)
[2022-06-24] MEDS ORDERED: KETOROLAC TROMETHAMINE 15 MG/ML VIAL IM ONE (00:15)
[2022-06-24] MEDS: POLYETHYLENE GLYCOL (HEALTHYLAX) 3350 17 GM PACKET PO SCH ×3 (06:36→21:15)
[2022-06-24] MEDS: MECLIZINE HCL 12.5 MG TABLET PO SCH ×3 (06:36→21:15)
[2022-06-24] MEDS: ACETAMINOPHEN 325 MG TABLET (FP) PO PRN ×2 (06:38→23:48)
[2022-06-24] MEDS ORDERED: KETOROLAC TROMETHAMINE 30 MG/1 ML VIAL IM ONE (09:35)
[2022-06-24] MEDS ORDERED: POLYETHYLENE GLYCOL (HEALTHYLAX) 3350 17 GM PACKET PO SCH (10:00)
[2022-06-24] MEDS ORDERED: ESCITALOPRAM OXALATE 10 MG TABLET ONE (10:09)
[2022-06-24] MEDS: CYCLOBENZAPRINE HCL 5 MG TABLET PO SCH (10:28)
[2022-06-24] MEDS: CYANOCOBALAMIN 1,000 MCG TABLET (FP) PO SCH (10:28)
[2022-06-24] MEDS: ESCITALOPRAM OXALATE 20 MG TABLET PO SCH (10:28)
[2022-06-24] MEDS: LIDOCAINE 5% TOPICAL PATCH TP SCH (10:28)
[2022-06-24] MEDS: ENOXAPARIN NA (PORCINE) 40 MG/0.4 ML DISP.SYRIN SQ SCH (10:28)
[2022-06-24] MEDS: PANTOPRAZOLE 20 MG TABLET PO SCH (10:28)
[2022-06-24] MEDS: KETOROLAC TROMETHAMINE 10 MG TABLET PO PRN (16:48)
[2022-06-24 18:14] VITALS: BMI 29.5
[2022-06-24] MEDS: LIDOCAINE PATCH REMOVAL MC SCH (21:16)
[2022-06-24] MEDS: clonazePAM 0.5 MG TABLET PO PRN (21:17)
[2022-06-24] MEDS: SENNOSIDES 8.6MG TABLET (FP) PO SCH (21:17)
[2022-06-25] MEDS: KETOROLAC TROMETHAMINE 10 MG TABLET PO PRN (02:32)
[2022-06-25] MEDS: MECLIZINE HCL 12.5 MG TABLET PO SCH ×3 (06:29→21:56)
[2022-06-25] MEDS: POLYETHYLENE GLYCOL (HEALTHYLAX) 3350 17 GM PACKET PO SCH ×3 (06:29→21:57)
[2022-06-25] MEDS ORDERED: KETOROLAC TROMETHAMINE 30 MG/1 ML VIAL IM PRN (09:50)
[2022-06-25] MEDS ORDERED: ESCITALOPRAM OXALATE 10 MG TABLET ONE (10:16)
[2022-06-25] MEDS: ENOXAPARIN NA (PORCINE) 40 MG/0.4 ML DISP.SYRIN SQ SCH (10:31)
[2022-06-25] MEDS: LIDOCAINE 5% TOPICAL PATCH TP SCH (10:32)
[2022-06-25] MEDS: CYCLOBENZAPRINE HCL 5 MG TABLET PO SCH ×2 (10:32→21:57)
[2022-06-25] MEDS: PANTOPRAZOLE 20 MG TABLET PO SCH (10:32)
[2022-06-25] MEDS: ESCITALOPRAM OXALATE 20 MG TABLET PO SCH (10:32)
[2022-06-25] MEDS: CYANOCOBALAMIN 1,000 MCG TABLET (FP) PO SCH (10:33)
[2022-06-25] MEDS ORDERED: clonazePAM 0.5 MG TABLET PO PRN (11:35)
[2022-06-25] MEDS: GABAPENTIN 300 MG CAPSULE PO SCH ×2 (14:23→21:58)
[2022-06-25] MEDS: ACETAMINOPHEN 325 MG TABLET (FP) PO PRN (14:23)
[2022-06-25] MEDS: LIDOCAINE PATCH REMOVAL MC SCH (21:58)
[2022-06-25] MEDS: SENNOSIDES 8.6MG TABLET (FP) PO SCH (21:58)
[2022-06-25 22:29] VITALS: RESP 20
[2022-06-26] MEDS: MECLIZINE HCL 12.5 MG TABLET PO SCH ×2 (05:38→15:28)
[2022-06-26] MEDS: POLYETHYLENE GLYCOL (HEALTHYLAX) 3350 17 GM PACKET PO SCH ×2 (05:38→15:28)
[2022-06-26] MEDS: GABAPENTIN 300 MG CAPSULE PO SCH ×2 (05:39→15:28)
[2022-06-26] MEDS ORDERED: ESCITALOPRAM OXALATE 10 MG TABLET ONE (09:46)
[2022-06-26] MEDS: ENOXAPARIN NA (PORCINE) 40 MG/0.4 ML DISP.SYRIN SQ SCH (09:58)
[2022-06-26] MEDS: LIDOCAINE 5% TOPICAL PATCH TP SCH (09:59)
[2022-06-26] MEDS: CYCLOBENZAPRINE HCL 5 MG TABLET PO SCH (10:00)
[2022-06-26] MEDS: CYANOCOBALAMIN 1,000 MCG TABLET (FP) PO SCH (10:00)
[2022-06-26] MEDS: PANTOPRAZOLE 20 MG TABLET PO SCH (10:00)
[2022-06-26] MEDS: ESCITALOPRAM OXALATE 20 MG TABLET PO SCH (10:00)
[2022-06-26] MEDS: ACETAMINOPHEN 325 MG TABLET (FP) PO PRN (10:05)
[2022-06-26 14:47] VITALS: BP 143/62; PULSE 62; TEMP 97.8
== END 2022-06-26 15:35 | DRG 552 ==
LOC: JER 08:35 → INTOOBSV 14:23 → UNDOADMOB 14:23 → JERBED 14:23 → J8W 20:56 → OBSVTOIN 06-20 10:44 → J8W 06-24 19:00
PROVIDERS: ADMIT Internal Medicine; ATTEND Internal Medicine
DX: M43.16 Spondylolisthesis, lumbar region (principal); K59.00 Constipation, unspecified; I10 Essential (primary) hypertension; E78.5 Hyperlipidemia, unspecified; M48.061 Spinal stenosis, lumbar region without neurogenic claudication; F03.90 Unspecified dementia, unspecified severity, without behavioral disturbance, psychotic disturbance, mood disturbance, and anxiety; N28.89 Other specified disorders of kidney and ureter; H81.09 Meniere's disease, unspecified ear; F32.A Depression, unspecified; I65.21 Occlusion and stenosis of right carotid artery; K21.9 Gastro-esophageal reflux disease without esophagitis; K57.90 Diverticulosis of intestine, part unspecified, without perforation or abscess without bleeding; M54.50 Low back pain, unspecified
CPT/HCPCS: 36415; 80053; 81003; 82607; 85025; 87086; 93005; 93010; 97116-GP; 97161-GP; 99285-25; C9803-CS; G0378; U0003; U0005

== ENCOUNTER 2024-01-17 11:14 | Observation (INO) | payer OTHER, MEDICARE ==
[2024-01-17 12:22] LABS: BASO % 0.7 % (0-2.0); EOS % 0.9 % (0-4.5); HEMATOCRIT 36.4 % (32.4-45.2); HEMOGLOBIN 12.7 GM/dL (10.7-15.3); LYMPH % 14.4 % (8-40); MCH 30.4 pg (25.7-33.7); MCHC 34.8 g/dl (32.0-36.0); MEAN CELL VOLUME 87.3 fl (80-96); MEAN PLT VOLUME 7.9 fl (7.5-11.1); MONO % 7.5 % (3.8-10.2); NEUT % 76.5 % (42.8-82.8); PLATELET COUNT 209 10^3/uL (134-434); RBC 4.17 M/mm3 (3.60-5.2); WHITE BLOOD COUNT 9.4 K/mm3 (4.0-10.0)
[2024-01-17 12:46] LABS: POTASSIUM 3.7 mmol/L (3.5-5.1)
[2024-01-17 12:49] LABS: BLOOD UREA NITROGEN 19.6 mg/dL (7-18); CALCIUM 9.4 mg/dL (8.5-10.1); MAGNESIUM 1.7 mg/dL (1.8-2.4)
[2024-01-17 12:52] LABS: CREATININE 1.5 mg/dL (0.55-1.3); PHOSPHOROUS 1.6 mg/dL (2.5-4.9)
[2024-01-17 12:54] LABS: BILIRUBIN,TOTAL 1.2 mg/dL (0.2-1); TOT PROT 6.8 g/dl (6.4-8.2)
[2024-01-17 12:57] LABS: N-TERMINAL BNP 303.1 pg/ml (5-450)
[2024-01-17 12:58] LABS: LACTIC ACID 2.7 mmol/L (0.4-2.0)
[2024-01-17] MEDS: SODIUM CHLORIDE 1,000 ML IV ONE (14:22)
[2024-01-17] MEDS ORDERED: ONDANSETRON 4 MG/2 ML VIAL ONE (14:52)
[2024-01-17] MEDS ORDERED: FAMOTIDINE 20 MG/50 ML IVPB 20 MG/50 ML MG IVPB ONE (14:53)
[2024-01-17] MEDS: ONDANSETRON 4 MG/2 ML VIAL IVPB ONE (15:12)
[2024-01-17] MEDS: FAMOTIDINE 20 MG/50 ML IVPB 20 MG/50 ML MG IVPB ONE (15:12)
[2024-01-17 17:14] LABS: PH,URINE 7.5 (5.0-8.0); URINE APPEARANCE CLEAR; URINE BILIRUBIN NEGATIVE (NEGATIVE); URINE COLOR YELLOW; URINE GLUCOSE (UA) NEGATIVE (NEGATIVE); URINE KETONE 2+ (NEGATIVE); URINE LEUK ESTERASE NEGATIVE (NEGATIVE); URINE NITRITE NEGATIVE (NEGATIVE); URINE PROTEIN TRACE (NEGATIVE)
[2024-01-17] MEDS: LACTATED RINGERS SOLUTION 1000 ML INFUS.BAG IV ONE (17:35)
[2024-01-17] MEDS ORDERED: MAGNESIUM SULFATE IN WATER 2 GM/50 ML IVPB IVPB ONE (18:26)
[2024-01-17] MEDS ORDERED: NAPH,MB-DB/K PH,MBDB POWDER PACKET ONE (18:26)
[2024-01-17] MEDS: MAGNESIUM SULF 50% (8.12 MEQ/2 ML-1 GM VIAL) IVPB ONE (18:36)
[2024-01-17] MEDS: NAPH,MB-DB/K PH,MBDB POWDER PACKET PO ONE (18:36)
[2024-01-18 01:13] VITALS: BMI 33.3
[2024-01-18 09:19] LABS: BLOOD UREA NITROGEN 15.3 mg/dL (7-18); CALCIUM 8.7 mg/dL (8.5-10.1); CREATININE 1.2 mg/dL (0.55-1.3); POTASSIUM 3.3 mmol/L (3.5-5.1)
[2024-01-18] MEDS ORDERED: ACETAMINOPHEN 325 MG TABLET (FP) PO PRN (09:35)
[2024-01-18] MEDS ORDERED: IBUPROFEN 400 MG TABLET (FP) PO PRN (09:35)
[2024-01-18] MEDS ORDERED: oxyCODONE HCL 5 MG TABLET PO PRN (09:35)
[2024-01-18 09:43] LABS: BASO % 0.5 % (0-2.0); EOS % 1.3 % (0-4.5); HEMATOCRIT 34.1 % (32.4-45.2); HEMOGLOBIN 11.6 GM/dL (10.7-15.3); LYMPH % 18.7 % (8-40); MCH 29.9 pg (25.7-33.7); MCHC 33.9 g/dl (32.0-36.0); MEAN CELL VOLUME 88.4 fl (80-96); MEAN PLT VOLUME 8.1 fl (7.5-11.1); NEUT % 71.5 % (42.8-82.8); PLATELET COUNT 174 10^3/uL (134-434); RBC 3.86 M/mm3 (3.60-5.2); RDW 13.9 % (11.6-15.6); WHITE BLOOD COUNT 7.2 K/mm3 (4.0-10.0)
[2024-01-18] MEDS ORDERED: ESCITALOPRAM OXALATE 10 MG TABLET PO SCH (10:00)
[2024-01-18] MEDS: ENOXAPARIN NA (PORCINE) 40 MG/0.4 ML DISP.SYRIN SQ SCH (10:30)
[2024-01-18] MEDS: ESCITALOPRAM OXALATE 20 MG TABLET PO SCH (10:30)
[2024-01-18] MEDS: POLYETHYLENE GLYCOL (HEALTHYLAX) 3350 17 GM PACKET PO SCH (10:30)
[2024-01-18] MEDS: CYANOCOBALAMIN 1,000 MCG TABLET (FP) PO SCH (10:30)
[2024-01-18] MEDS: LIDOCAINE 5% TOPICAL PATCH TP SCH (10:30)
[2024-01-18] MEDS: POTASSIUM CHLORIDE ORAL LIQUID 20 MEQ/15 ML PO ONE (12:14)
[2024-01-18] MEDS: GABAPENTIN 300 MG CAPSULE PO SCH (13:46)
[2024-01-18] MEDS: DOCUSATE SODIUM 100 MG CAPSULE (FP) PO SCH (13:46)
[2024-01-18] MEDS: LIPASE/PROTEASE/AMYLASE 36,000 UNIT CAPSULE PO SCH (13:46)
[2024-01-18] MEDS: MECLIZINE HCL 12.5 MG TABLET PO SCH (13:46)
[2024-01-18] MEDS: LACTATED RINGERS SOLUTION 1,000 ML/1,000 ML INFUS.BAG IV SCH (13:47)
[2024-01-18] MEDS: clonazePAM 0.5 MG TABLET PO PRN (18:34)
[2024-01-18] MEDS: LIDOCAINE PATCH REMOVAL MC SCH (22:05)
[2024-01-18] MEDS: SENNOSIDES 8.6MG TABLET (FP) PO SCH (22:05)
[2024-01-18] MEDS: ATORVASTATIN CA 10 MG TABLET (FP) PO SCH (22:15)
[2024-01-19 04:47] VITALS: BP 133/76; PULSE 66; TEMP 97.8
[2024-01-19] MEDS: ESCITALOPRAM OXALATE 10 MG TABLET PO SCH (10:28)
[2024-01-19 11:45] VITALS: RESP 16
== END 2024-01-19 13:01 | disposition home or self-care (01) ==
LOC: JER 11:14 → JERBED 18:09 → J7W 20:19
PROVIDERS: ADMIT Internal Medicine; ATTEND Internal Medicine
PROC: 3E023GC Introduction of Other Therapeutic Substance into Muscle, Percutaneous Approach (ICD-10-PCS; principal; 2024-01-17)
PROC: 3E033GC Introduction of Other Therapeutic Substance into Peripheral Vein, Percutaneous Approach (ICD-10-PCS; 2024-01-17)
PROC: 3E0337Z Introduction of Electrolytic and Water Balance Substance into Peripheral Vein, Percutaneous Approach (ICD-10-PCS; 2024-01-17)
PROC: 3E033GC Introduction of Other Therapeutic Substance into Peripheral Vein, Percutaneous Approach (ICD-10-PCS; 2024-01-17)
DX: G93.41 Metabolic encephalopathy (principal); E78.5 Hyperlipidemia, unspecified; K57.90 Diverticulosis of intestine, part unspecified, without perforation or abscess without bleeding; K21.9 Gastro-esophageal reflux disease without esophagitis; K29.70 Gastritis, unspecified, without bleeding; H81.09 Meniere's disease, unspecified ear; K59.00 Constipation, unspecified; Z87.440 Personal history of urinary (tract) infections; Z88.0 Allergy status to penicillin; J30.2 Other seasonal allergic rhinitis; M48.00 Spinal stenosis, site unspecified
CPT/HCPCS: 0241U-QW; 36415; 70450-TC; 80048; 80053; 81003; 82962; 83605; 83690; 83735; 83880; 84100; 84436; 84439; 84443; 84484; 85025; 87086; 93005; 93010; 96361; 96365; 96372; 96375; 99285-25; G0378